=== PATIENT | female | born 1960 | race Caucasian/White ===

== ENCOUNTER 2017-03-29 11:37 | Day surgery (SDC) | payer OTHER ==
[~2017-03-29] VITALS: Ht 165.1 cm; Wt 77.6 kg
[~2017-03-29 11:37] MED LIST: AUGMENTIN875 MG PO; BUTALB-APAP-CA1 EACH PO; DOXYCYCLINE HY100 MG PO; DULERA 200 MCG/13 GM IH; EPIPEN ADU0.3 MG/0.3 IM; LEVOTHYROXINE25 MCG PO; LMX 530 GM TP; LORATADINE10 M2 PO; LOTRIMIN AF24 GM TP; LYRICA25 MG PO; MEDROL DOSEPAK4 MG PO; MELOXICAM; MELOXICAM PO; MOTRIN800 MG PO; NAPROSYN500 MG PO; NARCAN4 MG NS; OMEPRAZOLE40 M1 PO; OXYCODONE HCL15 MG PO; PERCOCET 5/31 TABLET PO; PHENERGAN25 MG PR; PRILOSEC40 MG PO; RANITIDINE HCL150 MG PO; RIZATRIPTAN10 MG PO; SYNTHROID25 MCG PO; TIZANIDINE HCL4 M1 PO; TIZANIDINE HCL4 MG PO; TOPAMAX25 MG PO; TOPIRAMATE25 MG PO; TORADOL10 MG PO; ULTRAM50 MG PO; VENTOLIN HFA18 GM IH; VICODIN ES 7.51 EAC1 PO
== END 2017-03-29 13:58 | disposition home or self-care (01) ==
LOC: PAIN 11:37 → SDC 12:00 → PAIN 13:58
DX: M47.816 Spondylosis without myelopathy or radiculopathy, lumbar region (principal); M54.5 Low back pain; G89.29 Other chronic pain; M51.36 Other intervertebral disc degeneration, lumbar region; M48.06 Spinal stenosis, lumbar region; M46.1 Sacroiliitis, not elsewhere classified; M47.22 Other spondylosis with radiculopathy, cervical region; M50.122 Cervical disc disorder at C5-C6 level with radiculopathy; J44.9 Chronic obstructive pulmonary disease, unspecified; E03.9 Hypothyroidism, unspecified; K21.9 Gastro-esophageal reflux disease without esophagitis; Z87.891 Personal history of nicotine dependence; Z88.0 Allergy status to penicillin
CPT/HCPCS: J1030; J2250; J3010; S0020

== ENCOUNTER 2017-04-05 11:31 | Day surgery (SDC) | payer OTHER ==
[~2017-04-05] VITALS: Ht 165.1 cm; Wt 77.6 kg
== END 2017-04-05 13:01 | disposition home or self-care (01) ==
LOC: PAIN 11:31 → SDC 12:00 → PAIN 12:00
DX: M47.816 Spondylosis without myelopathy or radiculopathy, lumbar region (principal); M54.5 Low back pain; G89.29 Other chronic pain; M51.26 Other intervertebral disc displacement, lumbar region; M54.12 Radiculopathy, cervical region; J44.9 Chronic obstructive pulmonary disease, unspecified; M46.1 Sacroiliitis, not elsewhere classified; M79.7 Fibromyalgia; M51.24 Other intervertebral disc displacement, thoracic region; K21.0 Gastro-esophageal reflux disease with esophagitis; F41.8 Other specified anxiety disorders; Z79.891 Long term (current) use of opiate analgesic
CPT/HCPCS: J1030; J2250; J3010; S0020

== ENCOUNTER 2017-04-06 22:17 | Emergency (ER) | payer OTHER ==
[~2017-04-06] VITALS: Ht 165.1 cm; Wt 78.6 kg
[2017-04-07] VITALS: BP 152/82
== END 2017-04-07 00:01 | disposition home or self-care (01) ==
LOC: EME 22:17
DX: S80.12XA Contusion of left lower leg, initial encounter (principal); W17.89XA Other fall from one level to another, initial encounter; Y93.A1 Activity, exercise machines primarily for cardiorespiratory conditioning; E03.9 Hypothyroidism, unspecified; Z87.891 Personal history of nicotine dependence
CPT/HCPCS: 73590; 99281; 99283

== ENCOUNTER 2017-05-04 08:11 | Day surgery (SDC) | payer OTHER | END 2017-05-04 09:28 | disposition home or self-care (01) | LOC: PAIN 08:11 | DX: M53.3 Sacrococcygeal disorders, not elsewhere classified (principal); M46.1 Sacroiliitis, not elsewhere classified; E03.9 Hypothyroidism, unspecified; J44.9 Chronic obstructive pulmonary disease, unspecified; M79.7 Fibromyalgia; K21.9 Gastro-esophageal reflux disease without esophagitis; Z88.0 Allergy status to penicillin; Z87.891 Personal history of nicotine dependence | CPT/HCPCS: J1030; J2250; J3010; S0020 ==

== ENCOUNTER 2018-03-03 10:22 | Day surgery (SDC) | payer OTHER ==
[~2018-03-03] VITALS: Ht 165.1 cm; Wt 86.2 kg
[~2018-03-03 10:22] MED LIST changes: +CLIMARA0.05 MG TP; +LORCET PLUS 7.1 EACH PO; -PERCOCET 5/31 TABLET PO; -SYNTHROID25 MCG PO; +SYNTHROID75 MCG PO
== END 2018-03-03 12:30 | disposition home or self-care (01) ==
LOC: PAIN 10:22 → SDC 11:00 → PAIN 11:00
PROC: BR161ZZ Fluoroscopy of Lumbar Facet Joint(s) using Low Osmolar Contrast (ICD-10-PCS; principal; 2018-03-03)
PROC: 3E0T3TZ Introduction of Destructive Agent into Peripheral Nerves and Plexi, Percutaneous Approach (ICD-10-PCS; principal; 2018-03-03)
DX: M47.816 Spondylosis without myelopathy or radiculopathy, lumbar region (principal); M48.061 Spinal stenosis, lumbar region without neurogenic claudication; M54.12 Radiculopathy, cervical region; M46.1 Sacroiliitis, not elsewhere classified; M79.7 Fibromyalgia; M51.26 Other intervertebral disc displacement, lumbar region; E03.9 Hypothyroidism, unspecified; K21.9 Gastro-esophageal reflux disease without esophagitis; J44.9 Chronic obstructive pulmonary disease, unspecified; Z88.0 Allergy status to penicillin; Z79.891 Long term (current) use of opiate analgesic; Z88.8 Allergy status to other drugs, medicaments and biological substances; Z91.041 Radiographic dye allergy status; Z91.013 Allergy to seafood; Z87.891 Personal history of nicotine dependence
CPT/HCPCS: J1030; J1885; J2250; J3010; S0020

== ENCOUNTER 2018-03-10 10:25 | Day surgery (SDC) | payer OTHER ==
[~2018-03-10] VITALS: Ht 165.1 cm; Wt 86.2 kg
== END 2018-03-10 12:33 | disposition home or self-care (01) ==
LOC: PAIN 10:25 → SDC 11:00 → PAIN 12:33
DX: M47.816 Spondylosis without myelopathy or radiculopathy, lumbar region (principal); M79.7 Fibromyalgia; M51.26 Other intervertebral disc displacement, lumbar region; M46.1 Sacroiliitis, not elsewhere classified; M16.0 Bilateral primary osteoarthritis of hip; M70.71 Other bursitis of hip, right hip; J44.9 Chronic obstructive pulmonary disease, unspecified; Z87.891 Personal history of nicotine dependence; Z79.891 Long term (current) use of opiate analgesic; Z88.0 Allergy status to penicillin; Z88.8 Allergy status to other drugs, medicaments and biological substances
CPT/HCPCS: J1030; J2250; J3010; S0020